=== PATIENT | male | born 2005 | race Caucasian/White ===

== ENCOUNTER 2025-05-05 16:28 | Emergency (ER) | payer OTHER, SELFPAY ==
[2025-05-05 16:29] VITALS: BMI 23.8
[2025-05-05 16:34] VITALS: BP 141/72
[2025-05-05 16:56] VITALS: BP 131/84
[2025-05-05 17:16] LABS: Hematocrit 38.0 % (39.0-52.0); Hemoglobin 14.0 g/dL (13.0-18.0); Mean Corp Hgb Conc. 36.8 g/dL (33.0-37.0); Mean Corpuscular Volume 85.2 fL (80.0-94.0); Nucleated Red Blood Cells % 0 % (-); Platelet Count 192 10^3/uL (130-400); Red Cell Dist. Width 13.1 % (11.5-14.5)
[2025-05-05 17:35] LABS: ALT (SGPT) 13 U/L (0-50); AST (SGOT) 18 U/L (17-59); Albumin 5.1 g/dl (3.5-5.0); Alkaline Phosphatase 61 U/L (38-126); Blood Urea Nitrogen 18 mg/dl (9-20); Calcium 9.6 mg/dl (8.4-10.2); Carbon Dioxide 21 mmol/L (22-30); Chloride 106 mmol/L (98-107); Estimated Creatinine Clearance > 125 ml/min; Glucose 108 mg/dl (70-99); Potassium 3.5 mmol/L (3.5-5.1); Sodium 138 mmol/L (135-145); Total Protein 7.1 g/dl (6.3-8.2); eGFR > 60.00
[2025-05-05 17:42] LABS: Troponin I < 0.012 ng/ml
[2025-05-05 18:00] VITALS: BP 128/78
--- NOTE | 2025-05-05 18:05 | ED.GENMED ---
History of Present Illness
General
Chief Complaint: Chest Pain
Source: patient
Time Seen by Provider: 05/05/25 17:34
History of Present Illness
History of Present Illness:
19-year-old male with past medical history of POTS presenting to the emergency department for evaluation of upper abdomen/chest discomfort that has been ongoing for about a week and a half and accompanied with some belching but today around 3:00 the
pain became more intense and sharp within the sternal region with the sharpness lasting only a few seconds and then resolving, pain did radiate towards his neck and left shoulder, currently the pain is much more dull. Patient did start taking some
omeprazole [id number] about 6 days ago which she states did give him some of the relief with the belching as well as his taking a course of amoxicillin due to a left-sided otitis media prescribed by his primary care about 3 days ago. Patient
without any fevers, chills, rigors, cough, pleurisy or hemoptysis, current back or flank pain. Patient states these symptoms are very different than his typical POTS presentation which was never really with any pain and more just near syncopal like
symptoms. 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 Social history was otherwise noncontributory. Family history was noted for mother
having a history of pulmonary stenosis.
Past History
Past History
ED Past Medical History: Other (POTS)
ED Past Surgical History: None
Social History
Tobacco: Non-smoker
Alcohol: None
Drug: None
Personal: Single
Living: with family
Employment: Student
Review of Systems
Review of Systems
All Other Systems: ROS reviewed and negative except as documented in HPI and ROS
Phy Exam
Physical Exam
Physical Exam:
GENERAL: Alert , in no apparent distress
EYE: clear conjunctiva b/l
HEAD: NCAT
ENT: o/p clr, mmm.
CARDIAC: Regular rate and rhythm .
LUNGS: Clear breath sounds bilaterally, no acute respiratory distress, no wheezes/rales/rhonchi
CHEST WALL: No focal areas of tenderness
ABDOMEN: Soft, without focal tenderness, no r/g, no cvat
NEUROLOGICAL: Alert and oriented
SKIN: Warm and dry, skin intact.
MUSCULOSKELETAL: No edema, well perfused.
PSYCH: Normal and appropriate interaction.
Scores
Heart Failure Risk
Heart Failure Risk Score: Not Applicable
Heart Score for Chest Pain Patients
STEMI patient?: No
History: Slightly or Non-Suspicious
ECG: Normal
Age: </= 45 years
Risk Factors: No Risk Factors
Troponin: </= Normal Limit
Heart Score for Chest Pain Patients: 0
Heart Score Risk: 2.5% MACE over next 6 weeks
Withdrawal Assessment of Alcohol
Withdrawal Assessment Completed?: Not applicable
Course
Orders/Labs/Results
Orders:
Orders
05/05/25 16:29
Electrocardiogram (*1) Urgent
Reason for Study: Chest Pain
EKG- Treatment ONCE
05/05/25 16:38
EKG [Electrocardiogram (*1)] Urgent
Reason for Study: Chest Pain
EKG- Treatment ONCE
05/05/25 17:00
Cardiac Monitoring- Treatment ONCE
IV Insert/Care/Rem.- Treatment PRN
O2 Therapy [RESP] Urgent
Titrate/Wean O2 to maintain O2 sat greater than (%): 90
Special Instructions: Maintain sats >/=90%
Pulse Ox/spot Check [RESP] Urgent
Quantity: 1
Special Instructions: ON ROOM AIR
05/05/25 17:06
Complete Blood Count/With Diff Urgent
Comprehensive Metabolic Panel Urgent
Troponin I Urgent
05/05/25 19:35
D-Dimer Urgent
05/05/25 19:56
CR Chest - 2 Views Urgent
Comment:
Reason For Exam: chest pain
Abnormal Lab Results
05/05/25
17:06
RBC 4.46 L 10^6/uL
(4.70-6.10)
Hct 38.0 L %
(39.0-52.0)
MCH 31.4 H pg
(27.0-31.0)
MPV 10.8 H fL
(7.4-10.4)
Neutrophils % 77.0 H %
(42.2-75.2)
Lymphocytes % 17.3 L %
(20.5-51.1)
Carbon Dioxide 21 L mmol/L
(22-30)
Glucose 108 H mg/dl
(70-99)
Albumin 5.1 H g/dl
(3.5-5.0)
05/05/25 17:06
05/05/25 17:06
Vital Signs
Initial and Last Documented VS:
Initial Vital Signs
Temp Pulse Resp BP Pulse Ox
98.6 F 104 18 141/72 98
05/05/25 16:34 05/05/25 16:34 05/05/25 16:34 05/05/25 16:34 05/05/25 16:34
Last Documented Vital Signs
Temp Pulse Resp BP Pulse Ox
98.3 F 103 12 130/94 100
05/05/25 16:56 05/05/25 20:15 05/05/25 20:15 05/05/25 20:00 05/05/25 19:15
MDM/Problems Addressed
Differential Diagnosis Includes:
- Pleurisy
- Costochondritis
- PE
- Myocarditis/pericarditis
- Pneumothorax
- Less concern for ACS
- Valvular dysfunction
- Aortic dissection
- GERD/gastritis
MDM/Problems Addressed:
19-year-old male presenting to the ER for evaluation of chest discomfort which she has had for the last week and a half but today symptoms worse and more severe. Currently pain is controlled but not fully pain-free. Mild tachycardia noted in
triage, during my exam patient's heart rate between 82 and 94 bpm. Labs were initiated on arrival which are all reassuring with negative troponin. Will add D-dimer given the radiating neck pain and shoulder pain. Will order imaging based off of
D-dimer result.
*Radiology
Radiology exam reviewed: preliminary read by ED provider (Normal chest x-ray)
*Pulse Oximetry
SaO2: 97
Oxygen Mode of Delivery: Room air
Patient hypoxic: no
*EKG
Heart Rate: 114
Rate: tachycardiac
Rhythm: sinus
[place]: normal axis
Ischemia: other (T wave inversions inferolaterally)
*[place] Interpretation
Rate: normal
Heart Rate: 94
Rhythm: sinus
*Critical Care Note
Total Time (30-74mins, 75-104mins- exclusive of procedures): Not Applicable
Patient Management
Escalation/DeEscalation of care consider admission/obs:
Patient's workup is unremarkable. He has a negative D-dimer as well as negative troponin and normal chest x-ray. While here in the ER patient states that he did have a few episodes of belching which seemed to greatly relieved his symptoms. I do
suspect a potential GI cause for his symptoms could explain the discomfort patient experienced. Advised he continue the omeprazole that he started taking [id number]. Follow-up with primary care provider. Aware of return precautions to the
ER.
ED Attending Note
-
Portions of this chart may have been created with voice recognition software.� Occasional wrong word or��sound alike� substitutions may have occurred due to the inherent limitations of voice recognition software.
Discharge Plan
Departure
Patient Disposition: Home (Routine Discharge)
Date of Disposition: 05/05/25
Time of Disposition: 20:36
Patient with high blood pressure during this ER visit?: No
Discharge Problem:
Chest pain
Instructions: Chest Pain PCP Follow Up
Prescriptions:
No Action
No Meds [No Current Medications]
0
oseltamivir [Tamiflu] 12 MG/1 ML suspension for reconstitution
12 mg PO BID Qty: 0 0RF
Referrals:
UNKNOWN - PT DOES,NOT KNOW [Unknown Provider]
Interventions
Interventions:
*Risk Screen - Suicide Last Done: 05/05/25 16:34
*General Assessment Last Done: 05/05/25 16:34
*Neglect/Abuse Screening Last Done: 05/05/25 16:34
*ED- Fall Risk Assessment Last Done: 05/05/25 16:58
*ED COVID-19 Vaccine History Last Done: 05/05/25 16:34
*Nursing Disposition Last Done: 05/05/25 20:44
ED- Cardiac Assessment Last Done: 05/05/25 16:56
Discharge Date and Time
Discharge Date/Time: 05/05/25 20:44
Print Language: CZECH
[2025-05-05 19:00] VITALS: BP 123/77
[2025-05-05 19:55] LABS: D-Dimer < 0.27 ug/mlFEU (0.00-0.50)
[2025-05-05 20:00] VITALS: BP 130/94
== END 2025-05-05 20:44 | disposition home or self-care (01) ==
LOC: EMR 16:28
PROVIDERS: EMERGENCY PHYSICIAN Student in an Organized Health Care Education/Training Program
DX: R07.89 Other chest pain (principal); R10.10 Upper abdominal pain, unspecified; R00.0 Tachycardia, unspecified
CPT/HCPCS: 99285; 71046; 80053; 84484; 85025; 85379; 93005